=== PATIENT | female | born 2000 | race Two or more races ===

== ENCOUNTER 2022-01-04 19:19 | Emergency (ER) | payer OTHER ==
[~2022-01-04] VITALS: Ht 165.1 cm; Wt 58.5 kg
== END 2022-01-04 22:45 | disposition home or self-care (01) ==
LOC: ER 19:19 → EMR PED 19:29 → ER 19:29 → EMR PED 22:45
DX: R07.81 Pleurodynia (principal); K82.4 Cholesterolosis of gallbladder